=== PATIENT | female | born 1935 | race Asian ===

== ENCOUNTER 2016-05-12 06:38 | Inpatient (IN) | payer MEDICARE, MEDICAID ==
[~2016-05-12] VITALS: Ht 157.5 cm; Wt 53.4 kg
[2016-05-12] MEDS ORDERED: AMIN30LI28 PO (06:44)
[2016-05-12] MEDS ORDERED: ASCO500C6 PO (06:44)
[2016-05-12] MEDS ORDERED: SERT50TA12 PO (06:44)
[2016-05-12] MEDS ORDERED: FLUO-191 PO (06:44)
[2016-05-12] MEDS ORDERED: GLIP5 PO (06:44)
[2016-05-12] MEDS ORDERED: VALS80TA2 PO (06:44)
[2016-05-12] MEDS ORDERED: LORA0.5T2 PO (06:44)
[2016-05-12] MEDS ORDERED: PROPOFOL 1000 MG/ISO-OSM 100 ML IV ONE (07:10)
[2016-05-12] MEDS: PROPOFOL 1000 MG/ISO-OSM 100 ML IV PRN ×3 (07:25→18:38)
[2016-05-12] MEDS ORDERED: SODIUM CHLORIDE 0.9% 1,000 ML IV ONE ×2 (07:30→09:45)
[2016-05-12 07:51] LABS: ABG A-A DIFF O2 265.6 mmHg (10-20.0); ABG BASE EXCESS -9.8 mmol/L (-2.0-3.0); ABG HCO3 17.5 mmol/L (22.0-26.0); ABG OXYHEMOGLOBIN 98.3 % (94.0-100.0); ABG PCO2 31 mmHg (35-45); ABG PH 7.334 (7.35-7.450); TEMPERATURE, FAHRENHEIT, BG 96.7 FAHREN (96.0-98.6)
[2016-05-12 07:52] LABS: ALLEN TEST, BLOOD GAS Positive
[2016-05-12 07:54] LABS: BASOPHILS % (AUTO) 0.3 % (0.0-2.0); EOSINOPHILS % (AUTO) 0.1 % (1.0-6.0); HEMATOCRIT 36.3 % (36-46); HEMOGLOBIN 11.6 g/dL (12.0-16.0); LYMPHOCYTES # (AUTO) 0.7 K/uL (1.0-4.8); LYMPHOCYTES % (AUTO) 8.6 % (22.0-44.0); MEAN CORPUSCULAR HEMOGLOBIN 29.7 pg (26.0-34.0); MEAN CORPUSCULAR HGB CONC 32.1 G/dL (31.0-37.0); MEAN CORPUSCULAR VOLUME 93 fL (80-100); MONOCYTES # (AUTO) 0.4 K/uL (0.1-1.0); MONOCYTES % (AUTO) 4.8 % (2.0-9.0); NEUTROPHILS # (AUTO) 6.7 K/uL (1.8-7.7); NEUTROPHILS % (AUTO) 86.2 % (40.0-70.0); PLATELET COUNT (AUTO) 165 K/uL (150-450); RED BLOOD CELL COUNT(AUTO) 3.91 MIL/uL (4.00-5.20); RED CELL DISTRIBUTION WIDTH 16.9 % (11.5-14.5); WHITE BLOOD COUNT (AUTO) 7.8 K/uL (4.5-11.0)
[2016-05-12 08:00] LABS: APPEARANCE,URINE CLOUDY (CLEAR); GLUCOSE, URINE (UA) 250 mg/dL (NEGATIVE); KETONES,URINE NEGATIVE (NEGATIVE); LEUKOCYTE ESTERASE ,URINE SMALL (NEGATIVE); OCCULT BLOOD,URINE TRACE (NEGATIVE); PROTEIN,URINE SEE CONFIRM (NEGATIVE)
[2016-05-12 08:01] LABS: ADD UA MICROSCOPIC YES
[2016-05-12 08:02] LABS: INR 1.2 (0.9-1.1); PROTHROMBIN TIME 12.5 SEC (9.4-11.6)
[2016-05-12 08:12] LABS: B-TYPE NATRIURETIC PEPTIDE 1110 pg/mL (0-100)
[2016-05-12 08:13] LABS: RBC,URINE 0-2 /HPF (0-2); SQUAMOUS EPITHELIAL CELL,UR Few /LPF (None Seen)
[2016-05-12 08:14] LABS: SULFOSALICYLIC ACID,URINE 3+ (Negative)
[2016-05-12 08:18] LABS: ALANINE AMINOTRANSFERASE 109 U/L (12-78); ALBUMIN 2.9 g/dL (3.4-5.0); ANION GAP 11 mmol/L (8-16); ASPARTATE AMINOTRANSFERASE 182 U/L (15-37); BILIRUBIN,TOTAL 1.6 mg/dL (0.1-1.0); CALCIUM, TOTAL 7.6 mg/dL (8.8-10.5); CARBON DIOXIDE 22 mmol/L (22-29); CHLORIDE 104 mmol/L (98-107); CREATINE KINASE, TOTAL 74 U/L (26-192); CREATININE 1.09 mg/dL (0.60-1.30); GLOMERULAR FILTR. RATE CALC 48 mL/min (>60); SODIUM SERUM 137 mmol/L (136-145); TOTAL PROTEIN, SERUM 6.2 g/dL (6.4-8.2); UREA NITROGEN, BLOOD 44 mg/dL (7-18)
[2016-05-12 08:22] LABS: POTASSIUM 6.8 mmol/L (3.5-5.1)
[2016-05-12] MEDS ORDERED: INSULIN REGULAR, HUMAN 100 UNITS/ML IVP ONE ×3 (08:30→09:45)
[2016-05-12] MEDS ORDERED: SODIUM BICARBONATE [ADULT] 8.4% 50 MEQ/50 ML SYRINGE IVP ONE (08:30)
[2016-05-12] MEDS ORDERED: FUROSEMIDE 40 MG/4 ML VIAL IVP ONE (08:30)
[2016-05-12] MEDS ORDERED: CALCIUM GLUCONATE 0.465 MEQ/ML 10 ML VIAL IVP ONE (08:30)
[2016-05-12] MEDS ORDERED: CALCIUM GLUCONATE 100 MG/ML 10 ML IVP ONE (08:30)
[2016-05-12] MEDS ORDERED: DEXTROSE 50%-WATER 25 GM/50 ML SYRINGE IVP ONE (08:30)
[2016-05-12] MEDS ORDERED: IPRATROPIUM BROMIDE 0.5 MG/2.5 ML NEB SOLUTION NEB PRN (09:00)
[2016-05-12] MEDS ORDERED: ALBUTEROL SULFATE 2.5 MG/0.5 ML NEB SOLUTION NEB PRN (09:00)
[2016-05-12] MEDS ORDERED: ACETAMINOPHEN 650 MG/20.3 ML SOLUTION UDCUP NG PRN (09:00)
[2016-05-12] MEDS ORDERED: MAGNESIUM HYDROXIDE SUSPENSION 30 ML UDCUP PO PRN (09:00)
[2016-05-12] MEDS ORDERED: BISACODYL 10 MG RECTAL RECTAL SUPPOSITORY PR PRN (09:00)
[2016-05-12] MEDS ORDERED: ONDANSETRON HCL 4 MG/2 ML VIAL IVP PRN (09:00)
[2016-05-12] MEDS ORDERED: DEXTROSE 50%-WATER 25 GM/50 ML SYRINGE IVP PRN (09:00)
[2016-05-12] MEDS ORDERED: FUROSEMIDE 20 MG/2 ML VIAL IVP SCH (09:00)
[2016-05-12 09:21] LABS: GLUCOSE COMMENT 1 Repeated; GLUCOSE,POINT OF CARE 526 MG/DL (70-110)
[2016-05-12] MEDS: PANTOPRAZOLE SODIUM 40 MG/VIAL IVP SCH (09:25)
[2016-05-12] MEDS: HEPARIN SODIUM,PORCINE 5,000 UNITS/ML VIAL SQ SCH ×2 (09:29→21:01)
[2016-05-12] MEDS ORDERED: CefTRIAXone 1 GM/DEXTROSE 50 ML IV ONE (09:45)
[2016-05-12 09:47] LABS: REFLEX LACTIC ACID? YES YES
[2016-05-12] MEDS: PIPERACILLIN SODIUM/TAZOBACTAM 2.25 GM in DEXTROSE 5%-WATER 50 ML IV SCH ×3 (10:32→21:57)
[2016-05-12 12:00] VITALS: BP 113/71
[2016-05-12] MEDS ORDERED: SUCCINYLCHOLINE CHLORIDE 20 MG/ML 10 ML VIAL IVP ONE (12:00)
[2016-05-12] MEDS ORDERED: ETOMIDATE 2 MG/ML 10 ML VIAL IVP ONE (12:00)
[2016-05-12 12:52] LABS: GLUCOSE COMMENT 1 Received Meds; GLUCOSE,POINT OF CARE 311 MG/DL (70-110)
[2016-05-12 15:34] LABS: CALCIUM, TOTAL 7.7 mg/dL (8.8-10.5); CREATININE 1.05 mg/dL (0.60-1.30); POTASSIUM 4.5 mmol/L (3.5-5.1)
[2016-05-12 16:00] VITALS: BP 97/69
[2016-05-12] MEDS ORDERED: SODIUM CHLORIDE 0.9% 250 ML IV ONE (16:44)
[2016-05-12] MEDS: INSULIN ASPART 100 UNITS/ML SQ PRN (17:41)
[2016-05-12 20:00] VITALS: BP 123/80
[2016-05-12] MEDS: INSULIN DETEMIR 100 UNITS/ML SQ SCH (21:00)
[2016-05-12] MEDS: FUROSEMIDE 40 MG/4 ML VIAL IVP SCH (21:01)
[2016-05-12 22:00] VITALS: BP 95/59
[2016-05-13] VITALS (9 sets, daily range): BP systolic 109–127; BP diastolic 63–79
[2016-05-13] MEDS: PROPOFOL 1000 MG/ISO-OSM 100 ML IV PRN ×3 (03:58→16:57)
[2016-05-13] MEDS: PIPERACILLIN SODIUM/TAZOBACTAM 2.25 GM in DEXTROSE 5%-WATER 50 ML IV SCH ×4 (03:58→22:06)
[2016-05-13 05:28] LABS: GLUCOSE,POINT OF CARE 152 MG/DL (70-110)
[2016-05-13 05:28] LABS: GLUCOSE,POINT OF CARE 177 MG/DL (70-110)
[2016-05-13 05:42] LABS: HEMOGLOBIN A1C 12.5 % (4.5-6.2)
[2016-05-13 07:08] LABS: AMYLASE 62 U/L (25-115); ANION GAP 13 mmol/L (8-16); CALCIUM, TOTAL 8.4 mg/dL (8.8-10.5); CARBON DIOXIDE 24 mmol/L (22-29); CHLORIDE 101 mmol/L (98-107); CHOL/HDL RATIO 1.8 (3.9-5.7); CREATINE KINASE, TOTAL 46 U/L (26-192); CREATININE 0.85 mg/dL (0.60-1.30); GLOMERULAR FILTR. RATE CALC > 60 mL/min (>60); PHOSPHORUS 4.8 mg/dL (2.5-4.9); POTASSIUM 3.7 mmol/L (3.5-5.1); SODIUM SERUM 138 mmol/L (136-145); UREA NITROGEN, BLOOD 38 mg/dL (7-18)
[2016-05-13 07:33] LABS: THYROID STIMULATING HORMONE 2.55 uIU/mL (0.36-3.74)
[2016-05-13] MEDS: FUROSEMIDE 40 MG/4 ML VIAL IVP SCH ×2 (09:21→20:47)
[2016-05-13] MEDS: PANTOPRAZOLE SODIUM 40 MG/VIAL IVP SCH (09:22)
[2016-05-13] MEDS: HEPARIN SODIUM,PORCINE 5,000 UNITS/ML VIAL SQ SCH ×2 (09:22→20:46)
[2016-05-13 09:55] LABS: ABG A-A DIFF O2 90.4 mmHg (10-20.0); ABG BASE EXCESS 0.3 mmol/L (-2.0-3.0); ABG HCO3 25.6 mmol/L (22.0-26.0); ABG OXYHEMOGLOBIN 96.4 % (94.0-100.0); ABG PCO2 28 mmHg (35-45); ABG PH 7.534 (7.35-7.450); TEMPERATURE, FAHRENHEIT, BG 97.6 FAHREN (96.0-98.6)
[2016-05-13 09:57] LABS: ALLEN TEST, BLOOD GAS Positive
[2016-05-13 10:06] LABS: GLUCOSE COMMENT 1 Received Meds; GLUCOSE,POINT OF CARE 283 MG/DL (70-110)
[2016-05-13 10:52] LABS: GLUCOSE,POINT OF CARE 164 MG/DL (70-110)
[2016-05-13] MEDS ORDERED: SODIUM CHLORIDE 0.9% 250 ML IV ONE (16:57)
[2016-05-13 17:13] LABS: APPEARANCE,UNSPUN,BODY FLUID SLIGHTLY CLOUDY (CLEAR); COLOR,BODY FLUID YELLOW (LT YELLOW)
[2016-05-13 17:17] LABS: PH, BODY FLUID 7
[2016-05-13] MEDS ORDERED: 0.9% SODIUM CHLORIDE 10 ML SYRINGE IVP PRN (20:00)
[2016-05-13] MEDS: INSULIN DETEMIR 100 UNITS/ML SQ SCH (20:47)
[2016-05-13] MEDS: INSULIN ASPART 100 UNITS/ML SQ PRN (23:47)
[2016-05-14] VITALS (8 sets, daily range): BP systolic 102–131; BP diastolic 57–82
[2016-05-14] MEDS: PROPOFOL 1000 MG/ISO-OSM 100 ML IV PRN ×2 (02:20→07:20)
[2016-05-14] MEDS: PIPERACILLIN SODIUM/TAZOBACTAM 2.25 GM in DEXTROSE 5%-WATER 50 ML IV SCH (03:43)
[2016-05-14 05:04] LABS: BASOPHILS # (AUTO) 0.08 K/uL (0.00-0.20); BASOPHILS % (AUTO) 0.9 % (0.0-2.0); EOSINOPHILS # (AUTO) 0.05 K/uL (0.00-0.70); EOSINOPHILS % (AUTO) 0.65 % (1.0-6.0); HEMATOCRIT 35.5 % (36-46); LYMPHOCYTES # (AUTO) 1.2 K/uL (1.0-4.8); LYMPHOCYTES % (AUTO) 15.3 % (22.0-44.0); MEAN CORPUSCULAR HEMOGLOBIN 30.1 pg (26.0-34.0); MEAN CORPUSCULAR HGB CONC 33.8 G/dL (31.0-37.0); MEAN CORPUSCULAR VOLUME 89 fL (80-100); MONOCYTES # (AUTO) 0.2 K/uL (0.1-1.0); MONOCYTES % (AUTO) 2.1 % (2.0-9.0); NEUTROPHILS # (AUTO) 6.5 K/uL (1.8-7.7); PLATELET COUNT (AUTO) 208 K/uL (150-450); RED BLOOD CELL COUNT(AUTO) 3.99 MIL/uL (4.00-5.20)
[2016-05-14 05:22] LABS: GLUCOSE,POINT OF CARE 159 MG/DL (70-110)
[2016-05-14 05:22] LABS: ANION GAP 8 mmol/L (8-16); CALCIUM, TOTAL 8.4 mg/dL (8.8-10.5); CARBON DIOXIDE 30 mmol/L (22-29); CHLORIDE 106 mmol/L (98-107); CREATININE 0.83 mg/dL (0.60-1.30); GLOMERULAR FILTR. RATE CALC > 60 mL/min (>60); SODIUM SERUM 144 mmol/L (136-145); UREA NITROGEN, BLOOD 26 mg/dL (7-18)
[2016-05-14 05:22] LABS: GLUCOSE,POINT OF CARE 165 MG/DL (70-110)
[2016-05-14 05:22] LABS: GLUCOSE,POINT OF CARE 165 MG/DL (70-110)
[2016-05-14 05:22] LABS: GLUCOSE COMMENT 1 Received Meds; GLUCOSE,POINT OF CARE 169 MG/DL (70-110)
[2016-05-14 05:24] LABS: POTASSIUM 2.4 mmol/L (3.5-5.1)
[2016-05-14 05:26] LABS: GLUCOSE,POINT OF CARE 113 MG/DL (70-110)
[2016-05-14 06:19] LABS: HEPATITIS Bs ANTIGEN SCREEN P Negative (Negative); HEPATITIS C AB SCREEN <0.1 s/co ratio (0.0-0.9)
[2016-05-14] MEDS: POTASSIUM CHL 10 MEQ/WATER 50 ML IV SCH ×5 (07:16→12:54)
[2016-05-14] MEDS ORDERED: POTASSIUM CHLORIDE 10% 40 MEQ/30 ML LIQUID UDCUP NG ONE (08:00)
[2016-05-14 08:42] LABS: ABG A-A DIFF O2 69.8 mmHg (10-20.0); ABG BASE EXCESS 9.4 mmol/L (-2.0-3.0); ABG HCO3 33.2 mmol/L (22.0-26.0); ABG OXYHEMOGLOBIN 97.4 % (94.0-100.0); ABG PCO2 31 mmHg (35-45); TEMPERATURE, FAHRENHEIT, BG 97.6 FAHREN (96.0-98.6)
[2016-05-14 08:43] LABS: ABG PH 7.617 (7.35-7.450); ALLEN TEST, BLOOD GAS Positive
[2016-05-14 08:51] LABS: ALANINE AMINOTRANSFERASE 78 U/L (12-78); ALBUMIN 2.6 g/dL (3.4-5.0); ASPARTATE AMINOTRANSFERASE 44 U/L (15-37); BILIRUBIN,TOTAL 0.7 mg/dL (0.1-1.0); TOTAL PROTEIN, SERUM 5.9 g/dL (6.4-8.2)
[2016-05-14] MEDS: HEPARIN SODIUM,PORCINE 5,000 UNITS/ML VIAL SQ SCH ×2 (09:11→21:01)
[2016-05-14] MEDS: PANTOPRAZOLE SODIUM 40 MG/VIAL IVP SCH (09:11)
[2016-05-14] MEDS: PIPERACILLIN/TAZO 3.375 GM/D5W 50 ML IV SCH ×2 (09:11→17:15)
[2016-05-14] MEDS: FUROSEMIDE 40 MG/4 ML VIAL IVP SCH (09:11)
[2016-05-14] MEDS ORDERED: SODIUM CHLORIDE 0.9% 250 ML IV ONE (09:11)
[2016-05-14 13:54] LABS: ABG A-A DIFF O2 75.7 mmHg (10-20.0); ABG BASE EXCESS 1.9 mmol/L (-2.0-3.0); ABG HCO3 26.6 mmol/L (22.0-26.0); ABG OXYHEMOGLOBIN 96.9 % (94.0-100.0); ABG PCO2 32 mmHg (35-45); ABG PH 7.514 (7.35-7.450); TEMPERATURE, FAHRENHEIT, BG 97.6 FAHREN (96.0-98.6)
[2016-05-14 13:55] LABS: ALLEN TEST, BLOOD GAS Positive
[2016-05-14] MEDS ORDERED: LORazepam 2 MG/ML VIAL IVP PRN ×2 (14:15→20:15)
[2016-05-14 15:05] LABS: ABG A-A DIFF O2 59.6 mmHg (10-20.0); ABG BASE EXCESS 4.2 mmol/L (-2.0-3.0); ABG HCO3 28.4 mmol/L (22.0-26.0); ABG OXYHEMOGLOBIN 97.3 % (94.0-100.0); ABG PCO2 34 mmHg (35-45); ABG PH 7.522 (7.35-7.450); TEMPERATURE, FAHRENHEIT, BG 97.6 FAHREN (96.0-98.6)
[2016-05-14 15:06] LABS: ALLEN TEST, BLOOD GAS Positive
[2016-05-14 17:27] LABS: TOTAL PROTEIN,BODY FLUID,REF 2.2 g/dL
[2016-05-14] MEDS: INSULIN DETEMIR 100 UNITS/ML SQ SCH (21:00)
[2016-05-14 23:52] LABS: GLUCOSE,POINT OF CARE 153 MG/DL (70-110)
[2016-05-14] MEDS: DEXTROSE 5% IV SCH (23:59)
[2016-05-14] MEDS: CEFUROXIME SODIUM IV SCH (23:59)
[2016-05-14] MEDS: WATER IV SCH (23:59)
[2016-05-15] VITALS: BP 121/82
[2016-05-15] MEDS: INSULIN ASPART 100 UNITS/ML SQ PRN
[2016-05-15] MEDS: LORazepam 2 MG/ML VIAL IVP PRN ×2 (00:42→05:44)
[2016-05-15 04:00] VITALS: BP 112/73
[2016-05-15 05:56] LABS: ALANINE AMINOTRANSFERASE 53 U/L (12-78); ALBUMIN 2.7 g/dL (3.4-5.0); ANION GAP 4 mmol/L (8-16); ASPARTATE AMINOTRANSFERASE 23 U/L (15-37); BILIRUBIN,TOTAL 0.9 mg/dL (0.1-1.0); CALCIUM, TOTAL 8.2 mg/dL (8.8-10.5); CARBON DIOXIDE 36 mmol/L (22-29); CHLORIDE 107 mmol/L (98-107); CREATININE 0.82 mg/dL (0.60-1.30); GLOMERULAR FILTR. RATE CALC > 60 mL/min (>60); POTASSIUM 3.3 mmol/L (3.5-5.1); SODIUM SERUM 147 mmol/L (136-145); TOTAL PROTEIN, SERUM 6.2 g/dL (6.4-8.2); UREA NITROGEN, BLOOD 22 mg/dL (7-18)
[2016-05-15 06:14] LABS: BASOPHILS % (AUTO) 0.1 % (0.0-2.0); EOSINOPHILS % (AUTO) 1.1 % (1.0-6.0); HEMATOCRIT 34.2 % (36-46); LYMPHOCYTES # (AUTO) 1.3 K/uL (1.0-4.8); LYMPHOCYTES % (AUTO) 15.8 % (22.0-44.0); MEAN CORPUSCULAR HEMOGLOBIN 29.3 pg (26.0-34.0); MEAN CORPUSCULAR VOLUME 91 fL (80-100); MONOCYTES # (AUTO) 0.7 K/uL (0.1-1.0); MONOCYTES % (AUTO) 8.1 % (2.0-9.0); NEUTROPHILS # (AUTO) 6.1 K/uL (1.8-7.7); NEUTROPHILS % (AUTO) 74.9 % (40.0-70.0); PLATELET COUNT (AUTO) 218 K/uL (150-450); RED BLOOD CELL COUNT(AUTO) 3.75 MIL/uL (4.00-5.20); RED CELL DISTRIBUTION WIDTH 17.1 % (11.5-14.5); WHITE BLOOD COUNT (AUTO) 8.2 K/uL (4.5-11.0)
[2016-05-15] MEDS ORDERED: POTASSIUM CHLORIDE 20 MEQ ER TABLET PO PRN (06:15)
[2016-05-15] MEDS: POTASSIUM CHL 10 MEQ/WATER 50 ML IV PRN ×3 (06:26→10:08)
[2016-05-15] MEDS: DEXTROSE 5% IV SCH ×2 (07:25→17:39)
[2016-05-15] MEDS: WATER IV SCH ×2 (07:25→17:39)
[2016-05-15] MEDS: CEFUROXIME SODIUM IV SCH ×2 (07:25→17:39)
[2016-05-15 08:00] VITALS: BP 121/79
[2016-05-15 08:03] LABS: B-TYPE NATRIURETIC PEPTIDE 2170 pg/mL (0-100)
[2016-05-15] MEDS: HEPARIN SODIUM,PORCINE 5,000 UNITS/ML VIAL SQ SCH ×2 (08:06→21:06)
[2016-05-15] MEDS: PANTOPRAZOLE SODIUM 40 MG/VIAL IVP SCH (08:07)
[2016-05-15 08:23] LABS: RBC MORPHOLOGY COMMENT ABNORMAL RBC MORPH
[2016-05-15 09:47] LABS: GLUCOSE,POINT OF CARE 149 MG/DL (70-110)
[2016-05-15 09:47] LABS: GLUCOSE,POINT OF CARE 139 MG/DL (70-110)
[2016-05-15 09:47] LABS: GLUCOSE COMMENT 1 Received Meds; GLUCOSE,POINT OF CARE 142 MG/DL (70-110)
[2016-05-15 12:00] VITALS: BP 118/82
[2016-05-15 16:00] VITALS: BP 126/61
[2016-05-15] MEDS ORDERED: AMIODARONE HCL 150 MG in DEXTROSE 5%-WATER 97 ML IV ONE (16:00)
[2016-05-15] MEDS ORDERED: AMIODARONE HCL 360 MG in DEXTROSE 5%-WATER 242.8 ML IV ONE (16:20)
[2016-05-15] MEDS ORDERED: DOPamine HCL 400 MG/D5%-WATER 0 ML IV ONE (16:45)
[2016-05-15] MEDS ORDERED: PHENYLEPHRINE 200 MG/D5%-WATER 250 ML IV ONE (16:47)
[2016-05-15 20:00] VITALS: BP 119/78
[2016-05-15] MEDS: INSULIN DETEMIR 100 UNITS/ML SQ SCH (21:00)
[2016-05-15 21:58] LABS: GLUCOSE,POINT OF CARE 88 MG/DL (70-110)
[2016-05-15 21:58] LABS: GLUCOSE,POINT OF CARE 96 MG/DL (70-110)
[2016-05-15 21:58] LABS: GLUCOSE,POINT OF CARE 90 MG/DL (70-110)
[2016-05-15 22:01] LABS: GLUCOSE,POINT OF CARE 114 MG/DL (70-110)
[2016-05-15] MEDS ORDERED: AMIODARONE HCL 540 MG in DEXTROSE 5%-WATER 239.2 ML IV ONE (22:20)
[2016-05-16] VITALS (12 sets, daily range): BP systolic 101–137; BP diastolic 65–92
[2016-05-16] MEDS: DEXTROSE 5% IV SCH ×3 (00:06→16:25)
[2016-05-16] MEDS: CEFUROXIME SODIUM IV SCH ×3 (00:06→16:25)
[2016-05-16] MEDS: WATER IV SCH ×3 (00:06→16:25)
[2016-05-16] MEDS ORDERED: SODIUM CHLORIDE 0.9% 250 ML IV ONE (01:26)
[2016-05-16 01:56] LABS: GLUCOSE,POINT OF CARE 109 MG/DL (70-110)
[2016-05-16 07:02] LABS: GLUCOSE,POINT OF CARE 102 MG/DL (70-110)
[2016-05-16 07:22] LABS: ANION GAP 14 mmol/L (8-16); CALCIUM, TOTAL 8.2 mg/dL (8.8-10.5); CARBON DIOXIDE 27 mmol/L (22-29); CHLORIDE 106 mmol/L (98-107); CREATININE 0.72 mg/dL (0.60-1.30); GLOMERULAR FILTR. RATE CALC > 60 mL/min (>60); SODIUM SERUM 147 mmol/L (136-145); UREA NITROGEN, BLOOD 25 mg/dL (7-18)
[2016-05-16] MEDS: DEXTROSE 5%-WATER 1,000 ML IV SCH (08:51)
[2016-05-16] MEDS: PANTOPRAZOLE SODIUM 40 MG/VIAL IVP SCH (08:52)
[2016-05-16] MEDS: HEPARIN SODIUM,PORCINE 5,000 UNITS/ML VIAL SQ SCH ×2 (08:52→20:02)
[2016-05-16] MEDS ORDERED: AMIODARONE HCL 750 MG in DEXTROSE 5%-WATER 485 ML IV SCH (16:20)
[2016-05-16] MEDS: INSULIN ASPART 100 UNITS/ML SQ PRN ×2 (17:57→20:07)
[2016-05-16] MEDS: INSULIN DETEMIR 100 UNITS/ML SQ SCH (20:08)
[2016-05-17] MEDS: CEFUROXIME SODIUM IV SCH ×4 (00:39→23:45)
[2016-05-17] MEDS: DEXTROSE 5% IV SCH ×4 (00:39→23:45)
[2016-05-17] MEDS: WATER IV SCH ×4 (00:39→23:45)
[2016-05-17] MEDS: LORazepam 2 MG/ML VIAL IVP PRN ×2 (02:41→13:45)
[2016-05-17 04:09] VITALS: BP 108/76
[2016-05-17] MEDS: INSULIN ASPART 100 UNITS/ML SQ PRN (06:46)
[2016-05-17 07:28] VITALS: BP 127/85
[2016-05-17] MEDS: HEPARIN SODIUM,PORCINE 5,000 UNITS/ML VIAL SQ SCH ×2 (08:08→20:10)
[2016-05-17] MEDS: PANTOPRAZOLE SODIUM 40 MG/VIAL IVP SCH (08:09)
[2016-05-17] MEDS: DEXTROSE 5%-WATER 1,000 ML IV SCH (08:09)
[2016-05-17 11:15] VITALS: BP 122/78
[2016-05-17] MEDS ORDERED: GADOBUTROL 1 MMOL/ML 10 ML VIAL IVP ONE (12:09)
[2016-05-17 12:24] LABS: BASOPHILS % (AUTO) 0.5 % (0.0-2.0); EOSINOPHILS % (AUTO) 1.1 % (1.0-6.0); HEMATOCRIT 35.1 % (36-46); HEMOGLOBIN 11.2 g/dL (12.0-16.0); LYMPHOCYTES # (AUTO) 1.1 K/uL (1.0-4.8); MEAN CORPUSCULAR HEMOGLOBIN 29.6 pg (26.0-34.0); MEAN CORPUSCULAR HGB CONC 32.1 G/dL (31.0-37.0); MEAN CORPUSCULAR VOLUME 92 fL (80-100); MONOCYTES # (AUTO) 0.7 K/uL (0.1-1.0); MONOCYTES % (AUTO) 9.7 % (2.0-9.0); NEUTROPHILS % (AUTO) 72.7 % (40.0-70.0); PLATELET COUNT (AUTO) 236 K/uL (150-450); RED BLOOD CELL COUNT(AUTO) 3.81 MIL/uL (4.00-5.20); RED CELL DISTRIBUTION WIDTH 16.9 % (11.5-14.5); WHITE BLOOD COUNT (AUTO) 6.8 K/uL (4.5-11.0)
[2016-05-17 12:30] LABS: ANION GAP 7 mmol/L (8-16); CALCIUM, TOTAL 7.6 mg/dL (8.8-10.5); CARBON DIOXIDE 30 mmol/L (22-29); CHLORIDE 102 mmol/L (98-107); CREATININE 0.65 mg/dL (0.60-1.30); GLOMERULAR FILTR. RATE CALC > 60 mL/min (>60); PHOSPHORUS 2.1 mg/dL (2.5-4.9); POTASSIUM 3.6 mmol/L (3.5-5.1); SODIUM SERUM 139 mmol/L (136-145); UREA NITROGEN, BLOOD 23 mg/dL (7-18)
[2016-05-17] MEDS ORDERED: SODIUM PHOS,M-BASIC-D-BASIC 20 MMOL in DEXTROSE 5%-WATER 150 ML IV ONE (13:00)
[2016-05-17 15:52] VITALS: BP 116/81
[2016-05-17 20:05] VITALS: BP 129/87
[2016-05-17] MEDS: INSULIN DETEMIR 100 UNITS/ML SQ SCH (20:53)
[2016-05-17] MEDS: POTASSIUM CHL 10 MEQ/WATER 50 ML IV PRN (21:50)
[2016-05-17 23:06] VITALS: BP 126/90
[2016-05-18] MEDS: POTASSIUM CHL 10 MEQ/WATER 50 ML IV PRN ×2 (01:06→03:01)
[2016-05-18 05:23] VITALS: BP 146/90
[2016-05-18 07:13] VITALS: BP 133/85
[2016-05-18] MEDS: DEXTROSE 5% IV SCH ×2 (08:54→16:49)
[2016-05-18] MEDS: CEFUROXIME SODIUM IV SCH ×2 (08:54→16:49)
[2016-05-18] MEDS: WATER IV SCH ×2 (08:54→16:49)
[2016-05-18] MEDS: HEPARIN SODIUM,PORCINE 5,000 UNITS/ML VIAL SQ SCH ×2 (08:55→20:22)
[2016-05-18] MEDS: PANTOPRAZOLE SODIUM 40 MG/VIAL IVP SCH (08:55)
[2016-05-18] MEDS: ASPIRIN 81 MG CHEWABLE TABLET PO SCH (08:55)
[2016-05-18] MEDS: INSULIN ASPART 100 UNITS/ML SQ PRN ×3 (12:18→22:56)
[2016-05-18 12:19] VITALS: BP 129/88
[2016-05-18] MEDS ORDERED: FUROSEMIDE 20 MG TABLET PO ONE (14:15)
[2016-05-18 15:21] VITALS: BP 125/81
[2016-05-18] MEDS: CHOLECALCIFEROL (VIT D3) 1,000 UNITS TABLET PO SCH (16:48)
[2016-05-18] MEDS: SERTRALINE HCL 50 MG TABLET PO SCH (16:48)
[2016-05-18] MEDS: METOPROLOL TARTRATE 25 MG TABLET PO SCH ×2 (16:48→20:21)
[2016-05-18] MEDS: TRIAMCINOLONE 0.1% 15 GM CREAM TP SCH ×2 (16:48→20:22)
[2016-05-18 20:19] VITALS: BP 108/70
[2016-05-18] MEDS: INSULIN DETEMIR 100 UNITS/ML SQ SCH (22:57)
[2016-05-18 23:10] VITALS: BP 100/70
[2016-05-19] MEDS ORDERED: SODIUM CHLORIDE 0.9% 100 ML ONE (02:05)
[2016-05-19] MEDS: CEFUROXIME SODIUM IV SCH ×3 (03:04→16:36)
[2016-05-19] MEDS: DEXTROSE 5% IV SCH ×3 (03:04→16:36)
[2016-05-19] MEDS: WATER IV SCH ×3 (03:04→16:36)
[2016-05-19] MEDS: LORazepam 2 MG/ML VIAL IVP PRN ×2 (03:05→16:36)
[2016-05-19 04:28] VITALS: BP 110/73
[2016-05-19 04:38] LABS: GLUCOSE COMMENT 1 Received Meds; GLUCOSE,POINT OF CARE 248 MG/DL (70-110)
[2016-05-19 04:38] LABS: GLUCOSE COMMENT 1 Received Meds; GLUCOSE,POINT OF CARE 183 MG/DL (70-110)
[2016-05-19 04:38] LABS: GLUCOSE,POINT OF CARE 197 MG/DL (70-110)
[2016-05-19 04:38] LABS: GLUCOSE COMMENT 1 Received Meds; GLUCOSE,POINT OF CARE 218 MG/DL (70-110)
[2016-05-19 04:38] LABS: GLUCOSE COMMENT 1 Received Meds; GLUCOSE,POINT OF CARE 207 MG/DL (70-110)
[2016-05-19 04:42] LABS: GLUCOSE,POINT OF CARE 155 MG/DL (70-110)
[2016-05-19 04:42] LABS: GLUCOSE COMMENT 1 Received Meds; GLUCOSE,POINT OF CARE 228 MG/DL (70-110)
[2016-05-19 04:42] LABS: GLUCOSE COMMENT 1 Received Meds; GLUCOSE,POINT OF CARE 225 MG/DL (70-110)
[2016-05-19 06:51] LABS: BASOPHILS # (AUTO) 0.02 K/uL (0.00-0.20); BASOPHILS % (AUTO) 0.3 % (0.0-2.0); EOSINOPHILS % (AUTO) 1.49 % (1.0-6.0); HEMOGLOBIN 11.9 g/dL (12.0-16.0); LYMPHOCYTES # (AUTO) 1.6 K/uL (1.0-4.8); LYMPHOCYTES % (AUTO) 24.4 % (22.0-44.0); MEAN CORPUSCULAR HEMOGLOBIN 30.4 pg (26.0-34.0); MEAN CORPUSCULAR HGB CONC 33.1 G/dL (31.0-37.0); MEAN CORPUSCULAR VOLUME 92 fL (80-100); MONOCYTES # (AUTO) 0.5 K/uL (0.1-1.0); MONOCYTES % (AUTO) 8.2 % (2.0-9.0); NEUTROPHILS # (AUTO) 4.3 K/uL (1.8-7.7); NEUTROPHILS % (AUTO) 65.6 % (40.0-70.0); PLATELET COUNT (AUTO) 255 K/uL (150-450); RED BLOOD CELL COUNT(AUTO) 3.91 MIL/uL (4.00-5.20); RED CELL DISTRIBUTION WIDTH 17.7 % (11.5-14.5); WHITE BLOOD COUNT (AUTO) 6.5 K/uL (4.5-11.0)
[2016-05-19 07:13] LABS: ANION GAP 5 mmol/L (8-16); CALCIUM, TOTAL 7.7 mg/dL (8.8-10.5); CARBON DIOXIDE 30 mmol/L (22-29); CHLORIDE 103 mmol/L (98-107); CREATININE 0.69 mg/dL (0.60-1.30); GLOMERULAR FILTR. RATE CALC > 60 mL/min (>60); PHOSPHORUS 2.7 mg/dL (2.5-4.9); POTASSIUM 4.2 mmol/L (3.5-5.1); SODIUM SERUM 138 mmol/L (136-145); UREA NITROGEN, BLOOD 26 mg/dL (7-18)
[2016-05-19] MEDS: LinaGLIPtin 5 MG TABLET PO SCH (09:00)
[2016-05-19] MEDS: METOPROLOL TARTRATE 25 MG TABLET PO SCH ×2 (09:04→21:35)
[2016-05-19] MEDS: ASPIRIN 81 MG CHEWABLE TABLET PO SCH (09:05)
[2016-05-19] MEDS: HEPARIN SODIUM,PORCINE 5,000 UNITS/ML VIAL SQ SCH ×2 (09:05→21:35)
[2016-05-19] MEDS: SERTRALINE HCL 50 MG TABLET PO SCH (09:05)
[2016-05-19] MEDS: PANTOPRAZOLE SODIUM 40 MG/VIAL IVP SCH (09:05)
[2016-05-19] MEDS: CHOLECALCIFEROL (VIT D3) 1,000 UNITS TABLET PO SCH (09:05)
[2016-05-19 09:10] LABS: RBC MORPHOLOGY COMMENT ABNORMAL RBC MORPH
[2016-05-19] MEDS: TRIAMCINOLONE 0.1% 15 GM CREAM TP SCH ×2 (09:21→22:31)
[2016-05-19 09:53] VITALS: BP 104/70
[2016-05-19] MEDS: ACARBOSE 50 MG TABLET PO SCH ×2 (11:27→18:00)
[2016-05-19] MEDS: INSULIN ASPART 100 UNITS/ML SQ PRN ×2 (11:49→17:37)
[2016-05-19 12:11] VITALS: BP 105/69
[2016-05-19] MEDS: FUROSEMIDE 20 MG TABLET PO SCH (15:15)
[2016-05-19] MEDS: ROSUVASTATIN CALCIUM 10 MG TABLET PO SCH (15:15)
[2016-05-19 16:16] VITALS: BP 115/71
[2016-05-19 19:24] VITALS: BP 152/63
[2016-05-19] MEDS: INSULIN DETEMIR 100 UNITS/ML SQ SCH (21:36)
[2016-05-19 23:25] VITALS: BP 103/67
[2016-05-20] MEDS: DEXTROSE 5% IV SCH ×3 (00:39→17:04)
[2016-05-20] MEDS: WATER IV SCH ×3 (00:39→17:04)
[2016-05-20] MEDS: CEFUROXIME SODIUM IV SCH ×3 (00:39→17:04)
[2016-05-20] MEDS ORDERED: SODIUM CHLORIDE 0.9% 250 ML IV ONE (00:44)
[2016-05-20] MEDS: LORazepam 2 MG/ML VIAL IVP PRN (01:15)
[2016-05-20 04:00] VITALS: BP 115/77
[2016-05-20 05:16] LABS: ABG A-A DIFF O2 507.2 mmHg (10-20.0); ABG BASE EXCESS 4.4 mmol/L (-2.0-3.0); ABG HCO3 29.2 mmol/L (22.0-26.0); ABG OXYHEMOGLOBIN 98.3 % (94.0-100.0); ABG PCO2 26 mmHg (35-45); ABG PH 7.611 (7.35-7.450); ALLEN TEST, BLOOD GAS Positive; TEMPERATURE, FAHRENHEIT, BG 98.6 FAHREN (96.0-98.6)
[2016-05-20 07:32] LABS: GLUCOSE,POINT OF CARE 131 MG/DL (70-110)
[2016-05-20 08:00] VITALS: BP 112/76
[2016-05-20] MEDS: ACARBOSE 50 MG TABLET PO SCH ×3 (08:00→17:04)
[2016-05-20] MEDS ORDERED: SODIUM CHLORIDE 0.9% 100 ML ONE ×2 (08:40→21:29)
[2016-05-20] MEDS: PANTOPRAZOLE SODIUM 40 MG/VIAL IVP SCH (08:59)
[2016-05-20] MEDS: CHOLECALCIFEROL (VIT D3) 1,000 UNITS TABLET PO SCH (08:59)
[2016-05-20] MEDS: ASPIRIN 81 MG CHEWABLE TABLET PO SCH (08:59)
[2016-05-20] MEDS: LinaGLIPtin 5 MG TABLET PO SCH (08:59)
[2016-05-20] MEDS: METOPROLOL TARTRATE 25 MG TABLET PO SCH ×2 (09:00→20:40)
[2016-05-20] MEDS: SERTRALINE HCL 50 MG TABLET PO SCH (09:00)
[2016-05-20] MEDS: HEPARIN SODIUM,PORCINE 5,000 UNITS/ML VIAL SQ SCH ×2 (09:00→20:40)
[2016-05-20] MEDS: FUROSEMIDE 20 MG TABLET PO SCH (09:00)
[2016-05-20] MEDS: TRIAMCINOLONE 0.1% 15 GM CREAM TP SCH ×2 (09:00→20:40)
[2016-05-20] MEDS ORDERED: FLUMAZENIL 0.1 MG/ML 5 ML VIAL IVP ONE (09:00)
[2016-05-20] MEDS ORDERED: FLUMAZENIL 0.1 MG/ML 5 ML VIAL IVP PRN (09:00)
[2016-05-20] MEDS: ROSUVASTATIN CALCIUM 10 MG TABLET PO SCH (09:01)
[2016-05-20 09:42] LABS: BASOPHILS % (AUTO) 1.1 % (0.0-2.0); EOSINOPHILS % (AUTO) 0.3 % (1.0-6.0); HEMATOCRIT 36.5 % (36-46); HEMOGLOBIN 11.8 g/dL (12.0-16.0); LYMPHOCYTES # (AUTO) 1.2 K/uL (1.0-4.8); LYMPHOCYTES % (AUTO) 13.9 % (22.0-44.0); MEAN CORPUSCULAR HEMOGLOBIN 29.5 pg (26.0-34.0); MEAN CORPUSCULAR HGB CONC 32.3 G/dL (31.0-37.0); MEAN CORPUSCULAR VOLUME 91 fL (80-100); MONOCYTES # (AUTO) 0.6 K/uL (0.1-1.0); MONOCYTES % (AUTO) 7.3 % (2.0-9.0); NEUTROPHILS # (AUTO) 6.7 K/uL (1.8-7.7); NEUTROPHILS % (AUTO) 77.4 % (40.0-70.0); PLATELET COUNT (AUTO) 218 K/uL (150-450); RED BLOOD CELL COUNT(AUTO) 3.99 MIL/uL (4.00-5.20); RED CELL DISTRIBUTION WIDTH 16.5 % (11.5-14.5); WHITE BLOOD COUNT (AUTO) 8.7 K/uL (4.5-11.0)
[2016-05-20 09:47] LABS: ALANINE AMINOTRANSFERASE 41 U/L (12-78); ALBUMIN 2.7 g/dL (3.4-5.0); ANION GAP 7 mmol/L (8-16); ASPARTATE AMINOTRANSFERASE 56 U/L (15-37); BILIRUBIN,TOTAL 0.6 mg/dL (0.1-1.0); CALCIUM, TOTAL 7.5 mg/dL (8.8-10.5); CARBON DIOXIDE 27 mmol/L (22-29); CHLORIDE 102 mmol/L (98-107); GLOMERULAR FILTR. RATE CALC > 60 mL/min (>60); POTASSIUM 4.7 mmol/L (3.5-5.1); SODIUM SERUM 136 mmol/L (136-145); TOTAL PROTEIN, SERUM 6.2 g/dL (6.4-8.2); UREA NITROGEN, BLOOD 37 mg/dL (7-18)
[2016-05-20 11:27] LABS: ABG A-A DIFF O2 222.2 mmHg (10-20.0); ABG BASE EXCESS 2.7 mmol/L (-2.0-3.0); ABG HCO3 27.9 mmol/L (22.0-26.0); ABG OXYHEMOGLOBIN 97.3 % (94.0-100.0); ABG PCO2 25 mmHg (35-45); TEMPERATURE, FAHRENHEIT, BG 98.9 FAHREN (96.0-98.6)
[2016-05-20 11:28] LABS: ABG PH 7.609 (7.35-7.450); ALLEN TEST, BLOOD GAS Positive
[2016-05-20 12:00] VITALS: BP 113/73
[2016-05-20] MEDS ORDERED: LORazepam 2 MG/ML VIAL IVP PRN (12:28)
[2016-05-20 12:47] LABS: GLUCOSE,POINT OF CARE 85 MG/DL (70-110)
[2016-05-20] MEDS ORDERED: ETOMIDATE 2 MG/ML 10 ML VIAL IV ONE (12:50)
[2016-05-20] MEDS ORDERED: VECURONIUM BROMIDE 10 MG/VIAL IV ONE (12:50)
[2016-05-20 14:46] LABS: ABG A-A DIFF O2 119.4 mmHg (10-20.0); ABG BASE EXCESS 1.2 mmol/L (-2.0-3.0); ABG OXYHEMOGLOBIN 97.6 % (94.0-100.0); ABG PCO2 32 mmHg (35-45); ABG PH 7.495 (7.35-7.450); ALLEN TEST, BLOOD GAS Positive; TEMPERATURE, FAHRENHEIT, BG 98.6 FAHREN (96.0-98.6)
[2016-05-20 16:00] VITALS: BP 115/74
[2016-05-20] MEDS ORDERED: ATROPINE SULFATE 0.1 MG/ML 10 ML SYRINGE IVP ONE (16:15)
[2016-05-20 16:51] LABS: ABG BASE EXCESS 0.6 mmol/L (-2.0-3.0); ABG HCO3 25.5 mmol/L (22.0-26.0); ABG PCO2 34 mmHg (35-45); ABG PH 7.476 (7.35-7.450); TEMPERATURE, FAHRENHEIT, BG 98.6 FAHREN (96.0-98.6)
[2016-05-20 16:56] LABS: ALLEN TEST, BLOOD GAS Positive
[2016-05-20 19:27] LABS: GLUCOSE COMMENT 1 Juice/Food/D50 Given; GLUCOSE,POINT OF CARE 68 MG/DL (70-110)
[2016-05-20 19:27] LABS: GLUCOSE,POINT OF CARE 128 MG/DL (70-110)
[2016-05-20 20:00] VITALS: BP 114/67
[2016-05-20] MEDS: INSULIN DETEMIR 100 UNITS/ML SQ SCH (20:41)
[2016-05-20] MEDS ORDERED: IOVERSOL 350 MG/ML 100 ML VIAL ONE (21:29)
[2016-05-21] VITALS: BP 125/73
[2016-05-21] MEDS ORDERED: SODIUM CHLORIDE 0.9% 250 ML IV ONE (00:02)
[2016-05-21] MEDS: CEFUROXIME SODIUM IV SCH ×3 (00:04→16:07)
[2016-05-21] MEDS: WATER IV SCH ×3 (00:04→16:07)
[2016-05-21] MEDS: DEXTROSE 5% IV SCH ×3 (00:04→16:07)
[2016-05-21 04:00] VITALS: BP 122/83
[2016-05-21 05:42] LABS: GLUCOSE,POINT OF CARE 120 MG/DL (70-110)
[2016-05-21 07:44] LABS: ANION GAP 9 mmol/L (8-16); CALCIUM, TOTAL 7.6 mg/dL (8.8-10.5); CARBON DIOXIDE 27 mmol/L (22-29); CHLORIDE 102 mmol/L (98-107); CREATININE 0.73 mg/dL (0.60-1.30); GLOMERULAR FILTR. RATE CALC > 60 mL/min (>60); PHOSPHORUS 3.6 mg/dL (2.5-4.9); POTASSIUM 4.2 mmol/L (3.5-5.1); SODIUM SERUM 138 mmol/L (136-145); UREA NITROGEN, BLOOD 33 mg/dL (7-18)
[2016-05-21 08:00] VITALS: BP 119/81
[2016-05-21] MEDS: PANTOPRAZOLE SODIUM 40 MG/VIAL IVP SCH (08:23)
[2016-05-21] MEDS: HEPARIN SODIUM,PORCINE 5,000 UNITS/ML VIAL SQ SCH (08:23)
[2016-05-21] MEDS: LinaGLIPtin 5 MG TABLET PO SCH (08:24)
[2016-05-21] MEDS: ASPIRIN 81 MG CHEWABLE TABLET PO SCH (08:24)
[2016-05-21] MEDS: CHOLECALCIFEROL (VIT D3) 1,000 UNITS TABLET PO SCH (08:24)
[2016-05-21] MEDS: FUROSEMIDE 20 MG TABLET PO SCH (08:24)
[2016-05-21] MEDS: SERTRALINE HCL 50 MG TABLET PO SCH (08:24)
[2016-05-21] MEDS: METOPROLOL TARTRATE 25 MG TABLET PO SCH (08:25)
[2016-05-21] MEDS: ACARBOSE 50 MG TABLET PO SCH ×3 (08:25→16:15)
[2016-05-21] MEDS: ROSUVASTATIN CALCIUM 10 MG TABLET PO SCH (08:27)
[2016-05-21] MEDS: TRIAMCINOLONE 0.1% 15 GM CREAM TP SCH (08:27)
[2016-05-21 11:43] LABS: GLUCOSE,POINT OF CARE 92 MG/DL (70-110)
[2016-05-21 12:00] VITALS: BP 117/75
[2016-05-21 16:00] VITALS: BP 119/87
[2016-05-21 17:27] LABS: GLUCOSE,POINT OF CARE 98 MG/DL (70-110)
[2016-05-21 17:32] LABS: GLUCOSE,POINT OF CARE 128 MG/DL (70-110)
[2016-05-22] MEDS ORDERED: ASPIRIN 81 MG CHEWABLE TABLET PO SCH (09:00)
[2016-05-23 20:12] LABS: GLUCOSE COMMENT 1 Juice/Food/D50 Given; GLUCOSE,POINT OF CARE 81 MG/DL (70-110)
[2016-05-23 20:22] LABS: GLUCOSE COMMENT 1 Doctor Notified; GLUCOSE,POINT OF CARE 141 MG/DL (70-110)
[2016-05-23 20:22] LABS: GLUCOSE,POINT OF CARE 130 MG/DL (70-110)
== END 2016-05-21 17:50 | DRG 871 ==
LOC: EMS 06:41 → ICU 11:00 → 5S 05-16 11:07 → ICU 05-20 03:00
PROVIDERS: ADMIT Internal Medicine Geriatric Medicine; ATTEND Internal Medicine Geriatric Medicine
PROC: 5A1945Z Respiratory Ventilation, 24-96 Consecutive Hours (ICD-10-PCS; 2016-05-12)
PROC: 0BH17EZ Insertion of Endotracheal Airway into Trachea, Via Natural or Artificial Opening (ICD-10-PCS; 2016-05-12)
PROC: 0W993ZZ Drainage of Right Pleural Cavity, Percutaneous Approach (ICD-10-PCS; principal; 2016-05-13)
DX: A41.51 Sepsis due to Escherichia coli [E. coli] (principal); J96.01 Acute respiratory failure with hypoxia; E43 Unspecified severe protein-calorie malnutrition; G93.41 Metabolic encephalopathy; I50.21 Acute systolic (congestive) heart failure; G93.40 Encephalopathy, unspecified; I63.9 Cerebral infarction, unspecified; J69.0 Pneumonitis due to inhalation of food and vomit; E87.2 Acidosis; N39.0 Urinary tract infection, site not specified; E87.0 Hyperosmolality and hypernatremia; E87.4 Mixed disorder of acid-base balance; N17.9 Acute kidney failure, unspecified; E87.5 Hyperkalemia; D64.9 Anemia, unspecified; E11.65 Type 2 diabetes mellitus with hyperglycemia; E78.5 Hyperlipidemia, unspecified; E87.6 Hypokalemia; I11.0 Hypertensive heart disease with heart failure; I48.91 Unspecified atrial fibrillation; K74.60 Unspecified cirrhosis of liver; K80.20 Calculus of gallbladder without cholecystitis without obstruction; R65.20 Severe sepsis without septic shock; R13.10 Dysphagia, unspecified; I34.0 Nonrheumatic mitral (valve) insufficiency; Z68.21 Body mass index [BMI] 21.0-21.9, adult; Z91.19 Patient's noncompliance with other medical treatment and regimen; Z79.899 Other long term (current) drug therapy
CPT/HCPCS: 31500; 32555; 70450; 70460; 70496; 70498; 70544; 70553; 71250; 76700; 76942; 80074; 82306; 82465; 82570; 82607; 82746; 82805; 82945; 82962; 83036; 83605; 83615; 83735; 83986; 84100; 84132; 84155; 84156; 84157; 84439; 84443; 87015; 87040; 87070; 87081; 87086; 87101; 87205; 88108; 89051; 92507; 92526; 92610; 92950; 93005; 93306; 93970; 94002; 94003; 94640; 96361; 96365; 96375; 96376; 97110; 97116; 97163; 97530; 99291; A9585; C9113; J0282; J0330; J0461; J0610; J0696; J0697; J1265; J1644; J1815; J1940; J2060; J2370; J2543; J2704; J3480; J3490; J7030; J7050; J7060